=== PATIENT | female | born 1930 | race Caucasian/White ===

== ENCOUNTER 2018-09-14 23:10 | Emergency (ER) | payer MEDICARE ==
[~2018-09-14] VITALS: Ht 160 cm; Wt 56.7 kg
--- NOTE | 2018-09-14 23:10 | NUR ---
to bed 2 bib ems c/o high bloodpressure. pt denies pain or dicomfort at this time. pt aaox2 no acute distress noted, resp even and unlabored. place pt on cardiac monitoring, continuous pox. pending er md stearns.
[2018-09-14] MEDS ORDERED: hydrALAZINE HCL IV 20 MG VIAL IV ONE (23:30)
[2018-09-14 23:39] LABS: BASOPHILS # (AUTO) 0.1 /CMM (0.0-0.2); BASOPHILS % (AUTO) 0.8 % (0.0-2.0); EOSINOPHILS % (AUTO) 3.1 % (0.0-6.0); HEMATOCRIT 39 % (33-45); HEMOGLOBIN 13.4 g/dL (11.5-14.8); LYMPHOCYTES # (AUTO) 1.5 /CMM (0.8-4.8); LYMPHOCYTES % (AUTO) 21.6 % (20.0-44.0); MEAN CORPUSCULAR HGB CONC 34 g/dl (31.0-36.0); MEAN CORPUSCULAR VOLUME 89 fL (82-100); MONOCYTES # (AUTO) 0.7 /CMM (0.1-1.30); MONOCYTES % (AUTO) 9.8 % (2.0-12.0); NEUTROPHILS # (AUTO) 4.6 /CMM (1.8-8.9); NEUTROPHILS % (AUTO) 64.7 % (43.0-81.0); PLATELET COUNT (AUTO) 246 /CMM (150-450); RED BLOOD CELL COUNT(AUTO) 4.38 MIL/uL (4.0-5.2); WHITE BLOOD COUNT (AUTO) 7.1 K/uL (4.3-11.0)
[2018-09-14] MEDS ORDERED: hydrALAZINE HCL IV 20 MG VIAL ONE (23:42)
[2018-09-14 23:48] LABS: CALCIUM, SERUM 10.2 mg/dL (8.5-10.1); CARBON DIOXIDE 29 mmol/L (21-32); CHLORIDE 107 mmol/L (98-107); CREATININE 1.1 mg/dL (0.6-1.3); GLUCOSE 102 mg/dL (74-106); POTASSIUM 3.8 mmol/L (3.5-5.1); SODIUM SERUM 140 mmol/L (136-145); UREA NITROGEN, BLOOD 24 mg/dL (7-18)
--- NOTE | 2018-09-14 23:55 | NUR ---
pt medicated as ordered.
--- NOTE | 2018-09-14 23:56 | NUR ---
pt trasnported to radiology for ct head.
--- NOTE | 2018-09-14 23:56 | NUR ---
cxr done. pt daughter at bedside
[2018-09-14 23:59] LABS: ALANINE AMINOTRANSFERASE 19 U/L (12-78); ALBUMIN 3.5 g/dL (3.4-5.0); ALKALINE PHOSPHATASE 88 U/L (46-116); ASPARTATE AMINOTRANSFERASE 16 U/L (15-37); BILIRUBIN,DIRECT 0.1 mg/dL (0.0-0.2); BILIRUBIN,TOTAL 0.3 mg/dL (0.2-1.0); TOTAL PROTEIN, SERUM 6.9 g/dL (6.4-8.2)
[2018-09-15] MEDS ORDERED: ONDANSETRON 4 MG TAB.RAPDIS ONE (01:11)
--- NOTE | 2018-09-15 01:25 | NUR ---
EPIC WAS PAGED.
--- NOTE | 2018-09-15 01:32 | NUR ---
IV removed. Catheter intact and site benign. Pressure and 4x4 applied to site. No bleeding noted. Patient discharged to home in stable condition. Written and verbal after care instructions given. Patient verbalizes understanding of instruction. ambulatory with a steady gait noted. pt s/o at bedside to take pt home.
[2018-09-15 01:34] VITALS: BP 176/87
[2018-09-15] MEDS ORDERED: ONDANSETRON 4 MG TAB.RAPDIS PO ONE (02:00)
== END 2018-09-15 01:35 | disposition home or self-care (01) ==
LOC: ER 23:10
DX: I16.0 Hypertensive urgency (principal); R51 Headache; R42 Dizziness and giddiness; E03.9 Hypothyroidism, unspecified; Z88.0 Allergy status to penicillin; Z88.1 Allergy status to other antibiotic agents
CPT/HCPCS: 36415; 70450; 71045; 80048; 80076; 84484; 85025; 93005; 96374; 99284; J0360; Q0162

== ENCOUNTER 2018-09-17 07:53 | Emergency (ER) | payer MEDICARE ==
[~2018-09-17] VITALS: Ht 160 cm; Wt 58.1 kg
--- NOTE | 2018-09-17 07:53 | NUR ---
[facility]IB [facility], FELL OFF HER BED LANDING ON HER LEFT HIP, BLOOD PRESSURE WAS ELEVATED PROMPTING STAFF TO CALL 911, TO ER BED 13, AOx3 , HOOKED TO MONITOR, BP OF 193/93, CHANGED TO GOWN, PROVIDED W WARM BLANKET, AWAITING MD BARCENAS.
--- NOTE | 2018-09-17 08:16 | NUR ---
DR BHANDARI AT BEDSIDE
--- NOTE | 2018-09-17 09:03 | NUR ---
CALLED DR JHA'S OFFICE. CURRENTLY SEEING PATIENTS. WILL CALL BACK.
--- NOTE | 2018-09-17 09:24 | NUR ---
PT REFUSED IV MEDICATION. MD AWARE, RECEIVED VERBAL ORDER OF CLONIDINE 0.2MG PO. CARRIED OUT.
--- NOTE | 2018-09-17 09:25 | NUR ---
DR JHA PAGED AGAIN THRU OFFICE,[facility] [place]
[2018-09-17] MEDS ORDERED: CLONIDINE HCL 0.1 MG TABLET ONE (09:26)
[2018-09-17] MEDS ORDERED: CLONIDINE HCL 0.1 MG TABLET PO ONE (09:30)
[2018-09-17] MEDS ORDERED: hydrALAZINE HCL IV 20 MG VIAL IV ONE ×2 (09:30→10:30)
[2018-09-17] MEDS ORDERED: hydrALAZINE HCL IV 20 MG VIAL ONE (10:15)
[2018-09-17] MEDS ORDERED: METOPROLOL TARTRATE 25 MG TABLET PO ONE (10:30)
[2018-09-17] MEDS ORDERED: IV NS 0.9% 1,000 ML BAG IV ONE (11:00)
[2018-09-17] MEDS ORDERED: IV NS 0.9% 500 ML BAG IV ONE (12:00)
--- NOTE | 2018-09-17 12:22 | NUR ---
CONTACT INFO: ALEISHA,DAUGHTER IN LAW,
[2018-09-17] MEDS ORDERED: METO50TA16 PO (12:39)
[2018-09-17] MEDS ORDERED: LEVO88TA5 PO (12:39)
[2018-09-17] MEDS ORDERED: AMLO5TAB4 PO (12:39)
[2018-09-17 12:51] LABS: BASOPHILS % (AUTO) 0.6 % (0.0-2.0); EOSINOPHILS % (AUTO) 0.9 % (0.0-6.0); HEMATOCRIT 35 % (33-45); HEMOGLOBIN 11.9 g/dL (11.5-14.8); LYMPHOCYTES # (AUTO) 0.9 /CMM (0.8-4.8); LYMPHOCYTES % (AUTO) 12.3 % (20.0-44.0); MEAN CORPUSCULAR HGB CONC 34 g/dl (31.0-36.0); MEAN CORPUSCULAR VOLUME 90 fL (82-100); MONOCYTES # (AUTO) 0.5 /CMM (0.1-1.30); NEUTROPHILS % (AUTO) 79.2 % (43.0-81.0); PLATELET COUNT (AUTO) 234 /CMM (150-450); RED BLOOD CELL COUNT(AUTO) 3.85 MIL/uL (4.0-5.2); WHITE BLOOD COUNT (AUTO) 7.5 K/uL (4.3-11.0)
[2018-09-17 13:00] LABS: CALCIUM, SERUM 9.2 mg/dL (8.5-10.1); CARBON DIOXIDE 28 mmol/L (21-32); CHLORIDE 108 mmol/L (98-107); GLUCOSE 111 mg/dL (74-106); POTASSIUM 4.2 mmol/L (3.5-5.1); SODIUM SERUM 143 mmol/L (136-145); UREA NITROGEN, BLOOD 18 mg/dL (7-18)
--- NOTE | 2018-09-17 14:22 | NUR ---
Pt in bed asleep, hooked to monitor. Will continue to monitor.
--- NOTE | 2018-09-17 17:32 | NUR ---
Patient discharged in stable condition. Written and verbal after care instructions given. Patient verbalizes understanding of instruction. Daughter in law Mansoor Saleem will bring pt back to facility.
[2018-09-17 17:59] VITALS: BP 120/53
== END 2018-09-17 17:35 ==
LOC: ER 07:56
DX: I95.2 Hypotension due to drugs (principal); M25.552 Pain in left hip; E03.9 Hypothyroidism, unspecified; Z88.0 Allergy status to penicillin; Z88.1 Allergy status to other antibiotic agents; W06.XXXA Fall from bed, initial encounter; Y93.89 Activity, other specified; Y92.89 Other specified places as the place of occurrence of the external cause; Y99.8 Other external cause status
CPT/HCPCS: 36415; 71045; 73503; 80048; 84484; 85025; 93005 ×2; 96374; 99285; J0360; J7030; J7040; 73502

== ENCOUNTER 2019-08-08 03:04 | Emergency (ER) | payer BC, MEDICARE ==
[~2019-08-08] VITALS: Ht 162.6 cm; Wt 56.7 kg
[~2019-08-08 03:04] MED LIST: AMLO5TAB4 PO; LEVO88TA5 PO; METO50TA16 PO
--- NOTE | 2019-08-08 03:12 | NUR ---
PT AAOX4. [id number] FROM [facility]. C/O "ROLLED OFF" HER BED. -KO. C/O LEFT HIP PAIN AND LOWER BACK PAIN (CHRONIC.) PLACED ON MONITOR AND PULSE OX. SKIN WARM AND INTACT. VSS. SMALL SKIN TEAR ON LEFT CHIN.
--- NOTE | 2019-08-08 03:20 | NUR ---
XRAY AT BEDSIDE.
--- NOTE | 2019-08-08 05:10 | NUR ---
Patient is resting comfortably in bed with eyes closed. Easily aroused. VSS.
[2019-08-08] MEDS ORDERED: HYDROCODONE/APAP 5/325MG 1 EACH TABLET ONE (05:13)
[2019-08-08] MEDS ORDERED: AMLODIPINE BESYLATE 5 MG TABLET ONE (05:13)
[2019-08-08] MEDS ORDERED: HYDROCODONE/APAP 5/325MG 1 EACH TABLET PO ONE (05:30)
[2019-08-08] MEDS ORDERED: AMLODIPINE BESYLATE 5 MG TABLET PO ONE (05:30)
--- NOTE | 2019-08-08 07:09 | NUR ---
Patient is resting comfortably in bed with eyes closed. Easily aroused. VSS.
--- NOTE | 2019-08-08 07:23 | NUR ---
RECEIVED REPORT FROM JAGUAR MCCOY FOR JOHAN, PT IS AAOX2, NOT IN RESPIRATORY DISTRESS, V/S STABLE, KEPT RESTED AND COMFORTABLE, WILL CONTINUE TO MONITOR.
--- NOTE | 2019-08-08 07:41 | NUR ---
called transport eta 0900 per harris
--- NOTE | 2019-08-08 07:43 | NUR ---
SPOKED TO [facility] FOR PT DISCHARGED.
--- NOTE | 2019-08-08 09:15 | NUR ---
REPORT GIVEN TO EMS FOR PT TRANSFER BACK TO [facility].
[2019-08-08 09:16] VITALS: BP 145/94
== END 2019-08-08 09:18 | disposition home or self-care (01) ==
LOC: ER 03:07
DX: S37.892A Contusion of other urinary and pelvic organ, initial encounter (principal); E03.9 Hypothyroidism, unspecified; I10 Essential (primary) hypertension; Z88.0 Allergy status to penicillin; Z88.1 Allergy status to other antibiotic agents; Z79.899 Other long term (current) drug therapy; W06.XXXA Fall from bed, initial encounter; Y93.89 Activity, other specified; Y92.89 Other specified places as the place of occurrence of the external cause; Y99.8 Other external cause status
CPT/HCPCS: 72131-TC; 73521